=== PATIENT | male | born 1985 | race Caucasian/White ===

== ENCOUNTER → 2016-06-29 | Outpatient (CLI) | payer OTHER ==
--- NOTE | 2016-06-30 23:22 | XR ---
EXAMINATION TYPE: XR chest 2V DATE OF EXAM: 06/29/2016 9:40 AM COMPARISON: None HISTORY: 30-year-old male with cough TECHNIQUE: Frontal and lateral views FINDINGS: The cardiomediastinal silhouette, aorta, and pulmonary vasculature are within normal limits. Lungs an d pleural spaces are clear. Posterior midthoracic spinal fusion hardware is present. IMPRESSION: No acute cardiopulmonary process.
== END | disposition home or self-care (01) ==
LOC: RADXRYALE 08:33
PROVIDERS: ATTEND Internal Medicine Rheumatology
DX: R05 Cough (principal)
CPT/HCPCS: 71020

== ENCOUNTER → 2016-06-30 | Outpatient (CLI) | payer OTHER ==
[2016-07-08 12:14] LABS: Cryoglobulin Absent (Absent)
== END | disposition home or self-care (01) ==
LOC: LABWHC1 16:52
PROVIDERS: ATTEND Internal Medicine Rheumatology
DX: R21 Rash and other nonspecific skin eruption (principal)
CPT/HCPCS: 36415; 82595; 86157

== ENCOUNTER 2019-04-03 18:31 | Emergency (ER) | payer OTHER, BC ==
[2019-04-03] MEDS ORDERED: SODIUM CHLORIDE 0.9% 1,000 ML IV STA (18:50)
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
[2019-04-03 19:41] LABS: Basophils # (A) 0.1 k/uL (0-0.2); Basophils % (A) 1 %; Eosinophils % (A) 0 %; HCT 47.5 % (39.0-53.0); HGB 17.1 gm/dL (13.0-17.5); Lymphocytes # (A) 1.4 k/uL (1.0-4.8); Lymphocytes % (A) 8 %; MCH 30.9 pg (25.0-35.0); MCHC 35.9 g/dL (31.0-37.0); MCV 86.1 fL (80.0-100.0); Mean Platelet Volume 8.6; Monocytes # (A) 0.6 k/uL (0-1.0); Monocytes % (A) 3 %; Neutrophils # (A) 16.3 k/uL (1.3-7.7); Neutrophils % (A) 88 %; Platelet Count 207 k/uL (150-450); RBC 5.52 m/uL (4.30-5.90); RDW 12.5 % (11.5-15.5); WBC 18.7 k/uL (3.8-10.6)
[2019-04-03 20:04] LABS: ALT 57 U/L (21-72); AST 41 U/L (17-59); Acetaminophen <10.0 ug/mL; African American GFR (CKD) >90 (>60 ml/min/1.73 sqM); Albumin 4.8 g/dL (3.5-5.0); Alcohol <10 mg/dL; Alkaline Phosphatase 121 U/L (38-126); Anion Gap 10 mmol/L; Blood Urea Nitrogen 9 mg/dL (9-20); Calcium 9.8 mg/dL (8.4-10.2); Carbon Dioxide 25 mmol/L (22-30); Chloride 103 mmol/L (98-107); Glucose 121 mg/dL (74-99); Magnesium 2.4 mg/dL (1.6-2.3); Phosphorus 2.2 mg/dL (2.5-4.5); Potassium 4.3 mmol/L (3.5-5.1); Salicylate <1.0 mg/dL; Sodium 138 mmol/L (137-145); Total Bilirubin 0.5 mg/dL (0.2-1.3)
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
[2019-04-03] MEDS ORDERED: MORPHINE SULFATE 4 MG/ML SYRINGE IVP STA (21:11)
[2019-04-03] MEDS ORDERED: HYDROmorphone 1 MG/ML 1 ML SYRINGE IVP STA (21:56)
[2019-04-03 22:15] VITALS: BP 125/74; PULSE 89; RESP 17; TEMP 98.7
== END 2019-04-03 22:14 | disposition other institution (70) ==
LOC: EC 18:31
DX: S82.891A Other fracture of right lower leg, initial encounter for closed fracture (principal); R56.9 Unspecified convulsions; Z79.899 Other long term (current) drug therapy; V47.5XXA Car driver injured in collision with fixed or stationary object in traffic accident, initial encounter; Y92.410 Unspecified street and highway as the place of occurrence of the external cause
CPT/HCPCS: 36415; 93005; 80053; 83735; 84100; 85025; 83520; 80329; 80320; 73590; 73610; 72125; 70450; 71260; 74177; 99285; 96374; 96375; 96361; J2270; J1170; Q9967

== ENCOUNTER → 2021-02-27 | Outpatient (CLI) | payer OTHER ==
--- NOTE | 2021-03-01 19:26 | US ---
EXAMINATION TYPE: US Soft tissue neck DATE OF EXAM: 02/27/2021 COMPARISON: NONE CLINICAL HISTORY: 35-year-old male R22.1 Localized swelling, mass and lump, neck. Patient stated has palpable left upper neck x 6 months and is greater than right neck at same level Technique: Targeted ultrasound examination left upper neck at the patient's palpable site. Images of the contralateral right upper neck were obtained for comparison purposes. FINDINGS: Emergency Generator Mechanic notes: Bilateral neck scanned: US of palpable left upper neck shows lymph node = 3.3 x 1.2 x 0.7cm with mohsen ical thickness = 2.5mm. Couple of lymph nodes seen right neck for comparison measure up to 1.7 x 0.9 x 0.5cm. IMPRESSION: The left upper neck palpable area corresponds to a borderline thickened lymph node measuring up to 1. 2 cm short axis. This should be followed clinically. Likely reactive lymph node or lymphadenitis. If any growth is noted, the area can be reimaged.
== END | disposition home or self-care (01) ==
LOC: RADUSWWP 17:07
PROVIDERS: ATTEND Family Medicine
DX: I88.9 Nonspecific lymphadenitis, unspecified (principal); R22.1 Localized swelling, mass and lump, neck
CPT/HCPCS: 76536

== ENCOUNTER 2022-09-23 20:16 | Emergency (ER) | payer BC, OTHER ==
[2022-09-23 20:27] VITALS: BP 144/100; PULSE 83; RESP 16; TEMP 98.2
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
== END 2022-09-23 21:14 | disposition home or self-care (01) ==
LOC: EC 20:16
DX: G40.909 Epilepsy, unspecified, not intractable, without status epilepticus (principal); I10 Essential (primary) hypertension; F12.90 Cannabis use, unspecified, uncomplicated
CPT/HCPCS: 93005; 99284

== ENCOUNTER → 2023-01-12 | Outpatient (CLI) | payer BC ==
--- NOTE | 2023-01-12 16:43 | MR ---
EXAMINATION TYPE: MR cervical spine wo con DATE OF EXAM: 01/12/2023 INDICATION: Patient age: Male; 37 years old; Reason for study: G56.40,V89.2XXA,M25.571,M25.579; PHH. Neck pain, right arm/hand numbness. COMPARISON: None TECHNIQUE: Multi planar, multi sequence imaging was performed utilizing: T1-weighted, T2-weighted, an d turbo inversion recovery imaging of the cervical spine. IV Contrast: None FINDINGS: Alignment: The cervical vertebral bodies have preserved heights. Alignment is within normal limits gi jj patient positioning. Bones: Scattered Modic endplate changes with osteophytes and disc space narrowing. Multilevel degener ative disc disease is noted and most pronounced at the C5-C7 vertebral levels. Cord: The spinal cord is unremarkable with regards to their signal intensity and morphology. Discs: Multilevel disc desiccation is present. C2-C3: No significant disc pathology. The spinal canal is patent. No neural foraminal stenosis. C3-C4: No significant disc pathology. The spinal canal is patent. Bilateral facet and uncovertebral joint arthropathy are present with mild bilateral neural foraminal stenosis. C4-C5: No significant disc pathology. The spinal canal is patent. Bilateral facet and uncovertebral joint arthropathy are present with mild left neural foraminal stenosis. The right neural foramen is p atent. C5-C6: A disc osteophyte complex is present with mild spinal canal stenosis. Bilateral facet and unc overtebral joint arthropathy are present with mild to moderate bilateral neural foraminal stenosis. C6-C7: A disc osteophyte complex is present with mild spinal canal stenosis. Bilateral facet and unc overtebral joint arthropathy are present with mild to moderate bilateral neural foraminal stenosis. C7-T1: No significant disc pathology. The spinal canal is patent. No neural foraminal stenosis. Other: None. IMPRESSION: 1. No evidence for disc herniation or significant spinal canal stenosis. 2. Multilevel disc degeneration with associated osteoarthritic changes worse at C5-C6 and C6-C7 with at least mild spinal canal stenosis and mild to moderate bilateral neural foraminal stenosis.
== END | disposition home or self-care (01) ==
LOC: RADMRIMAIN 06:05
PROVIDERS: ATTEND Nurse Practitioner Family
DX: M50.322 Other cervical disc degeneration at C5-C6 level (principal); M48.02 Spinal stenosis, cervical region; M99.71 Connective tissue and disc stenosis of intervertebral foramina of cervical region; G56.40 Causalgia of unspecified upper limb; M00.071 Staphylococcal arthritis, right ankle and foot; R26.89 Other abnormalities of gait and mobility; Z98.890 Other specified postprocedural states; V89.2XXA Person injured in unspecified motor-vehicle accident, traffic, initial encounter; Y92.9 Unspecified place or not applicable
CPT/HCPCS: 72141

== ENCOUNTER → 2023-09-16 | Outpatient (CLI) | payer BC ==
--- NOTE | 2023-09-16 10:09 | US ---
EXAMINATION TYPE: US abdomen limited DATE OF EXAM: 09/16/2023 COMPARISON: NONE CLINICAL INDICATION: Male, 37 years old with history of R74.8 abnormal levels of serum enzymes; RUQ p ain x few weeks. Patient denies any other signs, symptoms, or relevant history TECHNIQUE: Multiple sonographic images of the right upper quadrant are obtained. FINDINGS: EXAM MEASUREMENTS: Liver Length: 15.8 cm Gallbladder Wall: 0.2 cm CBD: 0.5 cm Right Kidney: 11.6 x 4.9 x 5.0 cm WAREHOUSE MAN NOTES: Pancreas: wnl Liver: wnl Gallbladder: wnl Evidence for sonographic Davis's sign: No CBD: wnl Right Kidney: wnl IMPRESSION: Unremarkable study
== END | disposition home or self-care (01) ==
LOC: RADUSWWP 09:34
PROVIDERS: ATTEND Internal Medicine Gastroenterology
DX: R74.8 Abnormal levels of other serum enzymes (principal)
CPT/HCPCS: 76705

== ENCOUNTER → 2023-10-18 | Outpatient (CLI) | payer BC ==
--- NOTE | 2023-10-18 15:39 | NM ---
EXAMINATION TYPE: NM bone scan whole body DATE OF EXAM: 10/18/2023 11:30 AM CLINICAL INDICATION:Male, 37 years old with history of R74.8 abnormal levels of other serum enzymes; COMPARISON: CT chest, abdomen and pelvis of 04/03/2019. TECHNIQUE: Intravenous administration 23.7 mCi Tc 99m MDP followed by multiple scintigraphic images o f the appendicular and axial skeleton. Additionally, small field of view planar anterior and posterio r images of the lumbosacral spine and pelvis. Lastly, coronal, transverse, and sagittal SPECT images of the lumbosacral spine and pelvis were generated for review.Lastly, small [id number] anterior, p osterior and lateral views of the chest were submitted for review. Images acquired 3 hours post injection. FINDINGS: Mid right seventh rib focus of uptake. No abnormal uptake is identified within the appendicular or axial skeleton to suggest metastatic dise ase. There is increased uptake within the bilateral shoulder, sternoclavicular, and sacroiliac joints con sistent with degenerative changes. No other photopenic areas or areas of increased activity are ident ified. Physiologic radiotracer activity is demonstrated in the kidneys and bladder. IMPRESSION: 1. A solitary focus of uptake in the rib can sometimes indicate metastasis although the majority are benign. Previous CT chest suggest tiny lytic lesion in the posterior right seventh rib. Consider ches t CT or possibly chest, abdomen and pelvis CT or PET/CT.
== END | disposition home or self-care (01) ==
LOC: RADNMMAIN 07:33
PROVIDERS: ATTEND Family Medicine
DX: R74.8 Abnormal levels of other serum enzymes (principal)
CPT/HCPCS: 78306; A9503

== ENCOUNTER → 2023-11-16 | Outpatient (CLI) | payer BC ==
--- NOTE | 2023-11-24 10:04 | CT ---
EXAMINATION TYPE: CT ChestAbdPelvis w con CT DLP: 1187.50 mGycm, Automated exposure control for dose reduction was used. DATE OF EXAM: 11/16/2023 4:00 PM COMPARISON: None. CLINICAL INDICATION:Male, 38 years old with history of M89.9 DISORDER OF BONE, UNSPECIFIED; PHH, lesi ons on rib, hip and back with pain Technique: CT ChestAbdPelvis w con; Multiple axial images were obtained. Two-dimensional coronal and sagittal reconstructions were obtained. Contrast used:100ml mL of Isovue 300 with IV Contrast, Oral contrast used: with Oral Contrast Findings: CHEST: LUNGS/ PLEURA: No focal consolidation, pneumothorax or pleural effusion. AIRWAY: Patent and unremarkable. HEART: Size within normal limits. MEDIASTINUM: No gross evidence of adenopathy. VASCULATURE: No aortic aneurysm. MUSCULOSKELETAL: No acute osseous abnormalities. Fixation hardware in the spine and multiple levels a ppear intact with hardware in appropriate position. Unchanged from 2019 lucent area in the right post erior aspect of rib 7. This measures up to 6 cm. SOFT TISSUES/LYMPH NODES: Unremarkable. LOWER NECK: No significant findings. ABDOMEN: ABDOMEN LIVER: Unremarkable GALLBLADDER AND BILE DUCTS: Unremarkable. PANCREAS: Unremarkable. SPLEEN: Unremarkable. ADRENAL GLANDS: Unremarkable. KIDNEYS AND URETERS: No evidence of hydronephrosis or renal calculus. The ureters are unremarkable. PELVIS BLADDER: Unremarkable REPRODUCTIVE: Vasectomy clips are seen bilaterally. ABDOMEN & PELVIS STOMACH AND BOWEL: No evidence of bowel obstruction. PERITONEUM: No evidence of pneumoperitoneum or free fluid. VASCULATURE: No evidence of aortic aneurysm. MUSCULOSKELETAL: No acute osseous abnormalities LYMPH NODES: No gross evidence for lymphadenopathy. SOFT TISSUE/ABDOMINAL WALL: Unremarkable IMPRESSION: Lucent area in the right posterior rib 7 which is unchanged from 2019 measuring up to 6 mm. This is o f doubtful clinical significance given stability. No evidence for mass or lymphadenopathy. No acute thoracic or abdominal process.
== END | disposition home or self-care (01) ==
LOC: RADCTMAIN 14:02
PROVIDERS: ATTEND Internal Medicine Hematology & Oncology
DX: M89.9 Disorder of bone, unspecified (principal); M54.9 Dorsalgia, unspecified; M25.559 Pain in unspecified hip
CPT/HCPCS: 71260; 74177; Q9967

== ENCOUNTER → 2024-02-22 | Outpatient (CLI) | payer BC ==
--- NOTE | 2024-02-22 14:24 | NM ---
EXAMINATION TYPE: NM bone scan whole body DATE OF EXAM: 02/22/2024 2:18 PM CLINICAL INDICATION:Male, 38 years old with history of M89.8X8 OTHER SPECIFIED DISORDERS OF BONE, OTH ER S; COMPARISON: 10/18/2023. TECHNIQUE: Intravenous administration 23.6 mCi Tc 99m MDP followed by multiple scintigraphic images o f the appendicular and axial skeleton. Additionally, small field of view planar anterior and posterio r images of the lumbosacral spine and pelvis. Lastly, coronal, transverse, and sagittal SPECT images of the lumbosacral spine and pelvis were generated for review.Lastly, small [id number] anterior, p osterior and lateral views of the chest were submitted for review. Images acquired 5 hours post injection. FINDINGS: No abnormal uptake is identified within the appendicular or axial skeleton to suggest metastatic dise ase. Abnormal uptake within the right distal tibia and the left midfoot. Other areas include the left AC j oint and thoracic sensory 2020 and the sternoclavicular joints as well as the sacroiliac joints. Physiologic radiotracer activity is demonstrated in the kidneys and bladder. IMPRESSION: Abnormal uptake of the right distal tibia and left midfoot. Findings similar distribution on 10/18/2023 further evaluation of the ankle is recommended. Findings in the feet likely representing degeneratio n.
== END | disposition home or self-care (01) ==
LOC: RADNMMAIN 07:39
PROVIDERS: ATTEND Internal Medicine Hematology & Oncology
DX: M89.8X8 Other specified disorders of bone, other site (principal); R93.7 Abnormal findings on diagnostic imaging of other parts of musculoskeletal system
CPT/HCPCS: 78306; A9503

== ENCOUNTER → 2024-03-28 | Outpatient (CLI) | payer BC ==
--- NOTE | 2024-04-01 14:04 | MR ---
EXAMINATION TYPE: MR cspine/lspine wo con DATE OF EXAM: 03/28/2024 6:03 PM CLINICAL INDICATION: Male, 38 years old with history of M47.812 SPONDYLOSIS W/O MYELOPATHY O M51.12 M 50.90; PHH, Neck pain into arms/hands, tingling left arm and both hands x1 yr, Hx cervical laminectom y, Low back pain into buttocks x1 yr, COMPARISON: TECHNIQUE: Multi planar, multi sequence imaging was performed utilizing: T1-weighted, T2-weighted, a nd turbo inversion recovery imaging of the cervical and lumbar spine. MR contrast: IV Contrast: cc , None. FINDINGS: CERVICAL: Alignment: The cervical vertebral bodies have preserved heights. Alignment is within normal limits gi jj patient positioning. Bones: Scattered Modic endplate changes with osteophytes and disc space narrowing. Multilevel degener ative disc disease is noted and most pronounced at the C5-C7 vertebral levels. Cord: The spinal cord is unremarkable with regards to their signal intensity and morphology. Discs: Multilevel disc desiccation is present. C2-C3: No significant disc pathology. The spinal canal is patent. No neural foraminal stenosis. C3-C4: No significant disc pathology. The spinal canal is patent. Bilateral facet and uncovertebral joint arthropathy are present with mild bilateral neural foraminal stenosis. C4-C5: No significant disc pathology. The spinal canal is patent. Bilateral facet and uncovertebral joint arthropathy are present with mild bilateral neural foraminal stenosis. C5-C6: A disc eccentric left osteophyte complex is present with moderate spinal canal stenosis. Bila teral facet and uncovertebral joint arthropathy are present with moderate bilateral neural foraminal stenosis. C6-C7: No significant disc pathology. The spinal canal is patent. No neural foraminal stenosis. C7-T1: No significant disc pathology. The spinal canal is patent. No neural foraminal stenosis. Other: None. LUMBAR: Alignment: The lumbar vertebral bodies have preserved heights and alignment. Cord: The conus medullaris and the distal spinal cord appear unremarkable with regards to their signa l intensity and morphology. Bones/Discs: Mild degeneration changes throughout the spine with osteophyte formation and facet joint arthropathy. Intervertebral disc signal is maintained. T12-L1: No evidence of significant spinal canal stenosis or neural foraminal stenosis. L1-L2: No evidence of significant spinal canal stenosis or neural foraminal stenosis. L2-L3: No evidence of significant spinal canal stenosis. Facet joint arthropathy mild bilateral neura l foraminal stenosis. L3-L4: No evidence of significant spinal canal stenosis. Facet joint arthropathy mild bilateral neura l foraminal stenosis. L4-L5: No evidence of significant spinal canal stenosis. Facet joint arthropathy mild bilateral neura l foraminal stenosis. L5-S1: The disc is rounded posterior morphology without significant spinal canal stenosis. Facet ted nt arthropathy with moderate neural foraminal stenosis. No significant spinal canal or neural foraminal stenosis in the remainder of the visualized levels. Other findings: None. IMPRESSION: 1. 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 2. Mild degeneration changes to the lumbar spine worse at L5-S1 with moderate bilateral neural michael inal stenosis. [facility], , 04/01/2024 2:01 PM
== END | disposition home or self-care (01) ==
LOC: RADMRIMAIN 15:51
PROVIDERS: ATTEND Anesthesiology Pain Medicine
DX: M48.02 Spinal stenosis, cervical region (principal); M50.90 Cervical disc disorder, unspecified, unspecified cervical region; M47.22 Other spondylosis with radiculopathy, cervical region; M47.26 Other spondylosis with radiculopathy, lumbar region; M48.061 Spinal stenosis, lumbar region without neurogenic claudication
CPT/HCPCS: 72141; 72148